=== PATIENT | female | born 1980 | race Caucasian/White ===

== ENCOUNTER 2019-05-29 08:08 | Inpatient (IN) ==
[2019-05-29] MEDS ORDERED: Aspirin 81 MG TAB.CHEW PO ONE (08:14)
[2019-05-29] MEDS ORDERED: *HR* LORazepam 2 MG/ML VIAL IVP ONE (08:15)
[2019-05-29] MEDS ORDERED: GI Cocktail 40 ML EACH PO ONE (08:37)
[2019-05-29 08:54] LABS: Basophils # 0.1 K/mcL (0.0-0.2); Basophils % 0.6 %; Eosinophils # 0.1 K/mcL (0.0-0.6); Hematocrit 42.9 % (35.3-44.9); Hemoglobin 13.6 g/dL (11.5-15.4); Immature Granulocytes % 0.3 % (0-4); Lymphocytes # 1.9 K/mcL (0.6-4.6); Lymphocytes % 16.4 %; Mean Corpuscular HGB Conc 31.7 g/dL (31.6-35.5); Mean Corpuscular Hemoglobin 27.6 pg (28.0-33.3); Mean Platelet Volume 12.7 fL (9.4-12.4); Monocytes # 0.5 K/mcL (0.0-1.3); Monocytes % 4.2 %; Platelet Count 234 K/mcL (140-400); Red Blood Count 4.93 M/mcL (3.82-4.97); Red Cell Distribution Width 14.6 % (11.5-14.5); Segmented Neutrophils % 77.5 %; White Blood Count 11.6 K/mcL (4.3-11.1)
[2019-05-29 09:17] LABS: BUN/Creatinine Ratio 21 (6-26); Blood Urea Nitrogen 18 mg/dL (6-20); Calcium 9.5 mg/dL (8.6-10.3); Carbon Dioxide 13 mEq/L (23-29); Chloride 100 mEq/L (98-107); Glucose 472 mg/dL (70-105); Osmolality,Calculated 305 (280-300); Potassium 4.5 mEq/L (3.5-5.1); Sodium 136 mEq/L (136-145); Troponin I < 0.03 ng/mL (< 0.04); eGFR For African Americans > 60 (> 60); eGFR For Non-African Americans > 60 (> 60)
[2019-05-29 09:23] LABS: Bilirubin,Urine Negative (Negative); Blood,Urine Negative (Negative); Clarity,Urine Clear (Clear); Color,Urine Yellow (Yellow); Glucose,Urine (UA) >=1000 mg/dL (Normal); Ketones,Urine >=160 mg/dL (Negative); Leukocyte Esterase,Urine Negative (Negative); Nitrite,Urine Negative (Negative); PH,Urine 5.5 pH Units (5.0-8.0); Protein,Urine Negative (Neg-Trace); Specific Gravity,Urine 1.029 (1.010-1.025); Urobilinogen,Urine Normal (Normal)
[2019-05-29] MEDS ORDERED: *HR* Dextrose 50 % in Water (Syg) 50 ML SYRINGE IVP PRN (09:36)
[2019-05-29] MEDS ORDERED: *HR* HYDROmorphone (PF) 1 MG/ML SYRINGE IVP ONE (09:38)
[2019-05-29] MEDS: 0.9 % Sodium Chloride 1,000 ML IVC SCH ×2 (09:41→10:38)
[2019-05-29] MEDS ORDERED: Insulin Human Regular 100 UNIT in 0.9 % Sodium Chloride 100 ML IVC SCH ×2 (09:45→14:15)
[2019-05-29 10:12] LABS: VBG HCO3 13 mEq/L (21-27); VBG PCO2 28 mmHg (41-51); VBG PH 7.28 pH Units (7.32-7.42); VBG PO2 159 mmHg (25-50)
[2019-05-29] MEDS ORDERED: Naloxone 0.4 MG/ML INJ IVP PRN (10:47)
[2019-05-29] MEDS ORDERED: Ondansetron 4 MG/2 ML VIAL IVP PRN (10:47)
[2019-05-29] MEDS ORDERED: *HR* Promethazine 25 MG/ML VIAL IVP PRN (10:47)
[2019-05-29] MEDS ORDERED: D5% in 0.45% NACL w KCl 20 MEQ/1,000 ML MLS IVC PRN (10:49)
[2019-05-29] MEDS ORDERED: D5% in 0.45% NACL 1,000 ML IVC PRN (10:49)
[2019-05-29] MEDS ORDERED: Insulin Regular, Human 100 UNIT/ML IV PRN (10:53)
[2019-05-29] MEDS ORDERED: 0.9 % Sodium Chloride 1,000 ML IVC SCH (11:00)
[2019-05-29] MEDS ORDERED: 0.9 % Sodium Chloride w KCl 20 MEQ/1,000 ML MLS IVC SCH (11:00)
[2019-05-29 11:44] LABS: VBG HCO3 12 mEq/L (21-27); VBG PCO2 24 mmHg (41-51); VBG PH 7.31 pH Units (7.32-7.42); VBG PO2 142 mmHg (25-50)
[2019-05-29 11:58] LABS: BUN/Creatinine Ratio 26 (6-26); Blood Urea Nitrogen 21 mg/dL (6-20); Calcium 8.4 mg/dL (8.6-10.3); Carbon Dioxide 12 mEq/L (23-29); Chloride 108 mEq/L (98-107); Glucose 416 mg/dL (70-105); Osmolality,Calculated 301 (280-300); Potassium 4.6 mEq/L (3.5-5.1); Sodium 135 mEq/L (136-145); eGFR For African Americans > 60 (> 60); eGFR For Non-African Americans > 60 (> 60)
[2019-05-29 13:04] LABS: Estimated Average Glucose 260 mg/dl
[2019-05-29 13:18] LABS: VBG HCO3 15 mEq/L (21-27); VBG PCO2 36 mmHg (41-51); VBG PH 7.23 pH Units (7.32-7.42); VBG PO2 64 mmHg (25-50)
[2019-05-29 13:29] LABS: BUN/Creatinine Ratio 26 (6-26); Blood Urea Nitrogen 20 mg/dL (6-20); Carbon Dioxide 15 mEq/L (23-29); Chloride 112 mEq/L (98-107); Glucose 229 mg/dL (70-105); Osmolality,Calculated 296 (280-300); Potassium 4.3 mEq/L (3.5-5.1); Sodium 138 mEq/L (136-145); eGFR For African Americans > 60 (> 60); eGFR For Non-African Americans > 60 (> 60)
[2019-05-29] MEDS ORDERED: 0.45 % Sodium Chloride w/KCl 20 MEQ/1,000 ML MLS IVC SCH (13:30)
[2019-05-29 15:22] LABS: VBG HCO3 17 mEq/L (21-27); VBG PCO2 34 mmHg (41-51); VBG PH 7.31 pH Units (7.32-7.42); VBG PO2 182 mmHg (25-50)
[2019-05-29 15:37] LABS: BUN/Creatinine Ratio 27 (6-26); Blood Urea Nitrogen 18 mg/dL (6-20); Calcium 7.6 mg/dL (8.6-10.3); Carbon Dioxide 18 mEq/L (23-29); Chloride 113 mEq/L (98-107); Glucose 135 mg/dL (70-105); Osmolality,Calculated 292 (280-300); Potassium 4.2 mEq/L (3.5-5.1); Sodium 139 mEq/L (136-145); eGFR For African Americans > 60 (> 60); eGFR For Non-African Americans > 60 (> 60)
[2019-05-29] MEDS ORDERED: Insulin DETEMIR 100 UNIT/ML X5UNITS SQ ONE (16:16)
[2019-05-29 17:29] LABS: VBG HCO3 17 mEq/L (21-27); VBG PCO2 35 mmHg (41-51); VBG PH 7.29 pH Units (7.32-7.42); VBG PO2 122 mmHg (25-50)
[2019-05-29] MEDS ORDERED: D5% in Water 1,000 ML IVC PRN (17:30)
[2019-05-29] MEDS ORDERED: Dextrose Gel 15 GM/37.5 ML TUBE PO PRN ×2 (17:30)
[2019-05-29 17:43] LABS: BUN/Creatinine Ratio 27 (6-26); Blood Urea Nitrogen 16 mg/dL (6-20); Calcium 7.8 mg/dL (8.6-10.3); Carbon Dioxide 17 mEq/L (23-29); Chloride 111 mEq/L (98-107); Glucose 136 mg/dL (70-105); Osmolality,Calculated 287 (280-300); Potassium 4.4 mEq/L (3.5-5.1); Sodium 137 mEq/L (136-145); eGFR For African Americans > 60 (> 60); eGFR For Non-African Americans > 60 (> 60)
[2019-05-29 20:06] LABS: VBG HCO3 18 mEq/L (21-27); VBG PCO2 36 mmHg (41-51); VBG PO2 105 mmHg (25-50)
[2019-05-29] MEDS ORDERED: Insulin LISPRO 300 UNITS/3 ML VIAL SQ SCH (21:00)
[2019-05-29 21:12] LABS: VBG HCO3 17 mEq/L (21-27); VBG PCO2 33 mmHg (41-51); VBG PH 7.31 pH Units (7.32-7.42); VBG PO2 105 mmHg (25-50)
[2019-05-29] MEDS: Nicotine 21 MG PATCH.TD24 TD SCH (21:19)
[2019-05-30 01:26] LABS: Basophils % 0.4 %; Eosinophils # 0.1 K/mcL (0.0-0.6); Eosinophils % 1.2 %; Hematocrit 34.5 % (35.3-44.9); Immature Granulocytes % 0.3 % (0-4); Lymphocytes # 2.9 K/mcL (0.6-4.6); Lymphocytes % 30.9 %; Mean Corpuscular HGB Conc 32.2 g/dL (31.6-35.5); Mean Corpuscular Hemoglobin 27.8 pg (28.0-33.3); Mean Corpuscular Volume 86.3 fL (83.0-100.0); Monocytes # 0.7 K/mcL (0.0-1.3); Monocytes % 7.1 %; Neutrophils # 5.6 K/mcL (1.6-8.9); Platelet Count 185 K/mcL (140-400); Red Cell Distribution Width 14.8 % (11.5-14.5); Segmented Neutrophils % 60.1 %; White Blood Count 9.4 K/mcL (4.3-11.1)
[2019-05-30 01:49] LABS: Hemoglobin 11.1 g/dL (11.5-15.4)
[2019-05-30] MEDS ORDERED: Insulin LISPRO 300 UNITS/3 ML VIAL SQ SCH (08:51)
[2019-05-30] MEDS: Insulin LISPRO 300 UNITS/3 ML VIAL SQ SCH ×3 (08:55→16:55)
[2019-05-30] MEDS: Fluticasone Propionate Nasal 50 MCG/SPRAY BOTTLE NS SCH (08:58)
[2019-05-30 10:12] LABS: BUN/Creatinine Ratio 18 (6-26); Blood Urea Nitrogen 11 mg/dL (6-20); Carbon Dioxide 19 mEq/L (23-29); Chloride 108 mEq/L (98-107); Glucose 296 mg/dL (70-105); Osmolality,Calculated 292 (280-300); Potassium 4.2 mEq/L (3.5-5.1); Sodium 136 mEq/L (136-145); eGFR For African Americans > 60 (> 60); eGFR For Non-African Americans > 60 (> 60)
[2019-05-30] MEDS ORDERED: Insulin DETEMIR 100 UNIT/ML X5UNITS SQ SCH ×2 (10:48→21:00)
[2019-05-30] MEDS: 0.9 % Sodium Chloride 1,000 ML IVC SCH (12:28)
[2019-05-30] MEDS: Nicotine 21 MG PATCH.TD24 TD SCH (23:04)
[2019-05-31 02:01] LABS: Basophils % 0.6 %; Eosinophils # 0.2 K/mcL (0.0-0.6); Eosinophils % 2.9 %; Hematocrit 35.3 % (35.3-44.9); Hemoglobin 11.3 g/dL (11.5-15.4); Immature Granulocytes % 0.2 % (0-4); Mean Corpuscular Hemoglobin 27.6 pg (28.0-33.3); Mean Corpuscular Volume 86.1 fL (83.0-100.0); Mean Platelet Volume 12.2 fL (9.4-12.4); Monocytes # 0.3 K/mcL (0.0-1.3); Monocytes % 6.1 %; Platelet Count 165 K/mcL (140-400); Red Cell Distribution Width 14.9 % (11.5-14.5); Segmented Neutrophils % 54.2 %; White Blood Count 5.5 K/mcL (4.3-11.1)
[2019-05-31 02:20] LABS: BUN/Creatinine Ratio 17 (6-26); Blood Urea Nitrogen 13 mg/dL (6-20); Calcium 8.6 mg/dL (8.6-10.3); Carbon Dioxide 20 mEq/L (23-29); Chloride 105 mEq/L (98-107); Glucose 310 mg/dL (70-105); Osmolality,Calculated 292 (280-300); Potassium 4.4 mEq/L (3.5-5.1); Sodium 135 mEq/L (136-145); eGFR For African Americans > 60 (> 60); eGFR For Non-African Americans > 60 (> 60)
[2019-05-31] MEDS: 0.9 % Sodium Chloride 1,000 ML IVC SCH (05:45)
[2019-05-31 08:12] VITALS: BP 163/98
[2019-05-31] MEDS: Insulin LISPRO 300 UNITS/3 ML VIAL SQ SCH (08:53)
[2019-05-31] MEDS: Fluticasone Propionate Nasal 50 MCG/SPRAY BOTTLE NS SCH (08:56)
[2019-05-31] MEDS ORDERED: Insulin DETEMIR 100 UNIT/ML X5UNITS SQ SCH (09:00)
[2019-05-31] MEDS ORDERED: Loratadine 10 MG TABLET PO SCH (09:00)
[2019-05-31] MEDS ORDERED: Spironolactone 25 MG TABLET PO SCH (09:00)
== END 2019-05-31 10:27 | disposition home or self-care (01) | DRG 420 ==
LOC: EMEROOARM 08:08 → 2NNU 12:30 → SUATTDRO 12:30 → 2NNU 13:07 → 2ANU 05-30 20:57
PROVIDERS: ADMIT Internal Medicine; ATTEND Family Medicine